=== PATIENT | female | born 1940 | race Caucasian/White ===

== ENCOUNTER → 2021-05-05 15:11 | Outpatient (CLI) | payer MEDICARE | END | disposition home or self-care (01) | LOC: D.MRI 15:11 | PROVIDERS: ATTEND Internal Medicine Medical Oncology | DX: C34.32 Malignant neoplasm of lower lobe, left bronchus or lung (principal); C77.1 Secondary and unspecified malignant neoplasm of intrathoracic lymph nodes; C79.51 Secondary malignant neoplasm of bone; D64.81 Anemia due to antineoplastic chemotherapy ==